=== PATIENT | female | born 1925 | race Asian ===

== ENCOUNTER 2016-12-20 06:21 | Emergency (ER) | payer OTHER ==
[2016-12-20] MEDS ORDERED: SODIUM CHLORIDE 1,000 ML IV STA (06:38)
--- NOTE | 2016-12-20 06:40 | PDOC ---
History of Present Illness - General Chief Complaint: Weakness Stated Complaint: WEAKNESS Time Seen by Provider: 12/20/16 06:38 History Source: Family Exam Limitations: Language Barrier - History of Present Illness Initial Comments: 12/20/16 06:40 CC: Dizziness + 2 episodes of vomiting Patient is an 89 y.o. female with a PMH of HTN, HLD and Asthma who presents via EMS following 2 episodes of non-bloody, non-bilious post prandial vomiting yesterday as well as a subsequent episode of dizziness which patient describes as a sensation of the room spinning. Patient states she was sitting in a chair resting yesterday afternoon when she looked up and felt dizzy. The sensation subsided within 1-2 minutes and was not associated with any loss of consciousness, shortness of breath or chest pain. Timing/Duration: 24 hours Severity: mild Associated Symptoms: reports: nausea/vomiting Past History - Past Medical History Allergies/Adverse Reactions: Allergies Allergy/AdvReac Type Severity Reaction Status Date / Time No Known Allergies Allergy Verified 12/20/16 06:34 Asthma: Yes HTN: Yes Hypercholesterolemia: Yes - Psycho/Social/Smoking Cessation Hx Suicidal Ideation: No Smoking History: Never smoked Information on smoking cessation initiated: No Hx Alcohol Use: No Drug/Substance Use Hx: No Substance Use Type: None Review of Systems - Review of Systems Constitutional: Yes: Fever (No chills, unintentional weight loss, weakness or malaise), Other HEENTM: Yes: Other (No blurry vision, hearing loss, tinnitus, sore throat) Respiratory: Yes: Other (No shortness of breath, cough, wheezing, hemoptysis) Cardiac (ROS): Yes: Other (No chest pain, palpitations, arrthymia, syncope) ABD/GI: Yes: Other (No nausea, vomiting, diarrhea, constipation) : Yes: Incontinence, Other (No hematuria, dysuria, urgency, increased frequency) Musculoskeletal: Yes: Other (No joint pain, joint swelling, muscle pain, muscle weakness) Integumentary: Yes: Other (No dryness, erythema, rash or bruising) Neurological: Yes: Other (No ) *Physical Exam - Vital Signs Last Vital Signs Temp Pulse Resp BP Pulse Ox 98.3 F 70 19 147/73 97 12/20/16 06:35 12/20/16 06:35 12/20/16 06:35 12/20/16 06:35 12/20/16 06:35 - Physical Exam General Appearance: Yes: Nourished, Appropriately Dressed HEENT: positive: EOMI Neck: positive: Trachea midline, Supple Respiratory/Chest: positive: Lungs Clear Cardiovascular: positive: Regular Rhythm, Regular Rate, S1, S2 Gastrointestinal/Abdominal: positive: Normal Bowel Sounds, Soft Musculoskeletal: positive: Normal Inspection Extremity: positive: Normal Capillary Refill, Normal Inspection Integumentary: positive: Normal Color, Dry, Warm Neurologic: positive: Fully Oriented, Alert ED Treatment Course - LABORATORY CBC & Chemistry Diagram: 12/20/16 06:45 12/20/16 06:45 Medical Decision Making - Medical Decision Making 12/20/16 07:00 Patient is an 89 y.o. female who presents following two episodes of vomiting and an episode of vertigo yesterday. Broad differential diagnosis includes cardiac (arrthymia, ACS) or gastrointestinal (hypokalemia s/p emesis) or infectious (less likely as patient is afebrile). Patient given 1 L IVNS and EKG , CMP, CBC, Troponin and UA pending, patient signed off to Dr. Dejan Corrigan @ 0700 on 12/20/16. *DC/Admit/Observation/Transfer Diagnosis at time of Disposition: Dizziness - Attestations Physician Attestion: 12/20/16 07:01 I, Dr. Lashon Caro, attest that this document has been prepared under my direction and personally reviewed by me in its entirety. I further attest, that it accurately reflects all work, treatment, procedures and medical decision -making performed by me.
[2016-12-20 06:42] VITALS: BMI 28.5
[2016-12-20 06:59] LABS: MCH 29.6 pg (25.7-33.7); MCHC 33.4 g/dl (32.0-36.0); MEAN CELL VOLUME 88.6 fl (80-96); MEAN PLT VOLUME 9.3 fl (7.5-11.1); PLATELET COUNT 193 K/MM3 (134-434); RDW 12.8 % (11.6-15.6); WHITE BLOOD COUNT 3.8 K/mm3 (4.0-10.0)
--- NOTE | 2016-12-20 07:07 | PDOC ---
*Physical Exam - Vital Signs Last Vital Signs Temp Pulse Resp BP Pulse Ox 98.3 F 70 19 147/73 97 12/20/16 06:35 12/20/16 06:35 12/20/16 06:35 12/20/16 06:35 12/20/16 06:35 - Physical Exam General Appearance: Yes: Nourished. No: Apparent Distress HEENT: positive: EOMI, ERICA, Normal Voice, Other (no Nystagmus, dry oral mucosa with lingua villosa nigra and glossal petechiae) Cardiovascular: positive: Regular Rhythm, Regular Rate Gastrointestinal/Abdominal: positive: Normal Bowel Sounds, Tender (Epigastric> RUQ), Flat, Soft. negative: Distended, Guarding, Rebound Musculoskeletal: positive: Normal Inspection (back grossly normal with no rash or petechiae or vessicals). negative: CVA Tenderness ED Treatment Course - LABORATORY CBC & Chemistry Diagram: 12/20/16 06:45 12/20/16 06:45 - ADDITIONAL ORDERS Additional order review: 12/20/16 06:45 RBC 4.20 MCV 88.6 MCHC 33.4 RDW 12.8 MPV 9.3 - RADIOLOGY Radiograph Interpretation: 12/20/16 16:30 CT scan of the abdomen and pelvis following oral and intravenous contrast. Impression: Tiny hepatic low-attenuation densities likely representing cysts. Right renal upper pole simple cyst measuring 2.3 cm. In adequate distention of the colon limiting evaluation of its wall with suggestion of thickening of the mid to distal sigmoid colon wall for which further evaluation is recommended. No surrounding inflammatory changes, free air or free fluid are identified. Progress Note - Progress Note Progress Note: Patient is a stable 89 year old P[place] female c/o nausea and vomiting (x1) and dizziness for 1 day. Ddx: bppv, vertigo, dehydration, electrolyte imbalance CBC, CMP cardiac screen, UA ordered care was transferred from Dr. Caro. Medical Decision Making - Medical Decision Making 12/20/16 07:30 89 year old female with history of vertigo at baseline complaining of increased dizziness for one day following one day of nausea and 1x vomiting. Ddx: Dehydration, Electrolyte imbalances, UTI, BPPV Fluids, standard labs, UA and basic cardiac workup was ordered. On reassessment the patient is now endorsing epigastric and RUQ pain. She states the pain started 3 days ago. Added Lipase to the existing tests and considering abdominal scan. Patient also complaining of an itchy back and concern about vericella infection. Back exam was grossly normal with no erythema no rash and vessicles. CBC is grossly normal with slightly low WBC but low concern for infection 12/20/16 09:01 On a followup physical examination the patient reported the pain as primarily epigastric and LUQ, 3-4/10 in severity. He renal function is wnl so a CT was ordered w/contrast IV and PO to rule out acute pathology. The patient still complaining of dizziness (room spinning) without any improvement following the fluids. Patient given meclizine and will reassess. The CMP was wnl 12/20/16 09:23 UA positive for UTI, will prescribe outpatient antibiotics 12/20/16 10:26 Patient was able to tolerate PO contrast, states the vertigo is better following the meclizine but sill feels more dizzy than baseline if she stands up. Patient does not appear dizzy until asked and then she throws herself back onto her bed and states the vertigo is really bad. CT was not concerning for any acute pathology. Discussed the results of the CT with patient's daughter and provided her a copy of the report and recommended she discuss the findings with her mothers PCP. 12/20/16 13:35 Patient continues to complain of dizziness on reevaluation, endorsed being hungry and was given a standard meal tray. 12/20/16 14:13 On reevaluation, patient was refusing to eat the food because she didn't think solid food was appropriate after two days of not eating and was asking for another IV because she thinks it will make her better. Spoke with daughter alone who endorsed frustration about what to do with mother at home. Consulted with correctional counselor/case manager. 12/20/16 14:23 machine clothing worker met with patient and daughter and discussed options based on the patient's insurance. [facility] was chosen and will meet with the family in the next 24-48 hours. 12/20/16 15:45 Patient's labs, imaging and vitals are non concerning for any acute process. Plan to discharge patient with 10 day abx for UTI and 10 day PRN meclizine for vertigo. Patient agreed to follow up with her primary care physician in the next two weeks and was provided with a copy of the CT and the labs for this follow up. Patient stated that she to go home and everyone was comfortable and in agreement with the plan. *DC/Admit/Observation/Transfer Diagnosis at time of Disposition: Dizziness, Dehydration Abdominal pain Qualifiers: Abdominal location: epigastric Qualified Code(s): R10.13 - Epigastric pain Vomiting Qualifiers: Vomiting type: unspecified Vomiting Intractability: unspecified Nausea presence : with nausea Qualified Code(s): R11.2 - Nausea with vomiting, unspecified UTI (urinary tract infection) Qualifiers: Urinary tract infection type: site unspecified Hematuria presence: without hematuria Qualified Code(s): N39.0 - Urinary tract infection, site not specified - Discharge Dispostion Disposition: HOME Condition at time of disposition: Fair Admit: No - Prescriptions Prescriptions: Cephalexin [Keflex] 500 mg PO TID #30 capsule Meclizine HCl 25 mg PO TID PRN #30 tablet PRN Reason: Vertigo - Referrals Referrals: STAFF,NOT ON [Primary Care Provider] - Petr Alvarez [Non Staff, Medical] - - Patient Instructions Printed Discharge Instructions: Benign Paroxysmal Positional Vertigo, DI for Urinary Tract Infection (UTI), DI for Vomiting -- Adult Additional Instructions: Thank you for trusting us with your health care. I hope you were satisfied with the care we provided. As we discussed, you were diagnosed with a urinary tract infection and antibiotics were sent to your pharmacy. It is important to take this and all medication as prescribed. Your dizziness is likely a positional vertigo and I have included information on this condition and sent a prescription for some medication that may help. You should follow up with your doctor, Kelly Alvarez, in the next two weeks for a followup and discuss correction treatment. The tests we ran for the abdominal pain did not reveal anything concerning but I am providing you with a copy of the report that you can discuss with your doctor. If your vertigo gets worse or you develop a high fever, become confused, or develop any concerning weakness you should return to the emergency department or call 911 immediately. - Attestations Physician Attestion: 12/20/16 15:01 I, Dr. Dejan Corrigan, attest that this document has been prepared under my direction and personally reviewed by me in its entirety. I further attest, that it accurately reflects all work, treatment, procedures and medical decision -making performed by me.
[2016-12-20 07:22] LABS: ALBUMIN 3.9 g/dl (3.4-5.0); ANION GAP 6 (8-16); BILIRUBIN,TOTAL 0.6 mg/dL (0.2-1.0); CO2 30 mmol/L (21-32); CREATININE 0.6 mg/dL (0.55-1.02); GLUCOSE,RANDOM 106 mg/dL (74-106); SGOT/AST 26 U/L (15-37); SGPT/ALT 32 U/L (12-78); TOT PROT 7.5 g/dl (6.4-8.2)
[2016-12-20 07:24] LABS: ALK PHOS 81 U/L (45-117); TROPONIN I < 0.02 ng/ml (0.00-0.05)
[2016-12-20 08:50] LABS: URINE APPEARANCE CLEAR; URINE BILIRUBIN NEGATIVE (NEGATIVE); URINE BLOOD NEGATIVE (NEGATIVE); URINE COLOR YELLOW; URINE GLUCOSE (UA) NEGATIVE (NEGATIVE); URINE KETONE NEGATIVE (NEGATIVE); URINE NITRITE NEGATIVE (NEGATIVE); URINE PROTEIN NEGATIVE (NEGATIVE); URINE UROBILINOGEN NEGATIVE mg/dL (0.2-1.0)
[2016-12-20 09:05] LABS: URINE LEUK ESTERASE 3+ (NEGATIVE)
[2016-12-20] MEDS ORDERED: MECLIZINE HCL 25 MG TABLET (FP) PO ONE (09:06)
[2016-12-20 09:10] LABS: URINE MUCUS RARE; URINE RBC 3 /hpf (0-3); URINE WBC 57 /hpf (3-5)
[2016-12-20] MEDS ORDERED: MECLIZINE HCL 25 MG TABLET (FP) ONE (10:11)
[2016-12-20 12:22] VITALS: TEMP 97.7
--- NOTE | 2016-12-20 13:41 | PDOC ---
Attending Attestation - Resident Resident Name: Dejan Corrigan - ED Attending Attestation I have performed the following: I have examined & evaluated the patient, The case was reviewed & discussed with the resident, I agree w/resident's findings & plan, Exceptions are as noted - HPI HPI: 12/20/16 13:39 Nonspecific Symptoms, Dizzy/Weak No Fever, No Chills - Physicial Exam PE: 12/20/16 13:40 Unremarkable - Medical Decision Making 12/20/16 13:41 DC HOME, Meclizine
[2016-12-20 15:28] VITALS: BP 142/70; PULSE 70
--- NOTE | 2016-12-21 12:42 | EKG ---
Test Reason : Blood Pressure : / mmHG Vent. Rate : 061 BPM Atrial Rate : 061 BPM P-R Int : 168 ms QRS Dur : 088 ms QT Int : 422 ms P-R-T Axes : 076 058 085 degrees QTc Int : 424 ms NORMAL SINUS RHYTHM NORMAL ECG NO PREVIOUS ECGS AVAILABLE Confirmed by WATSON VILLAGOMEZ MD ([id number]) on 12/21/2016 12:41:51 PM Referred By: Confirmed By:WATSON VILLAGOMEZ MD
== END 2016-12-20 15:28 | disposition home or self-care (01) ==
LOC: JER 06:21
PROC: 3E0337Z Introduction of Electrolytic and Water Balance Substance into Peripheral Vein, Percutaneous Approach (ICD-10-PCS; principal; 2016-12-20)
DX: N39.0 Urinary tract infection, site not specified (principal); E86.0 Dehydration; R42 Dizziness and giddiness; I10 Essential (primary) hypertension; E78.00 Pure hypercholesterolemia, unspecified; J45.909 Unspecified asthma, uncomplicated
CPT/HCPCS: 36415; 74177-TC; 80053; 81003; 81015; 82550; 83690; 84484; 85027; 93005; 93010; 96360; 99285-25